=== PATIENT | male | born 1970 | race Two or more races ===

== ENCOUNTER 2020-06-11 08:55 | Emergency (ER) | payer BC ==
[2020-06-11 09:45] LABS: ABSOLUTE BASOPHILS # (AUTO) 0.1 10^3/uL (0.0-0.2); ABSOLUTE EOSINOPHILS # (AUTO) 0.5 10^3/uL (0.0-0.6); ABSOLUTE LYMPHOCYTES (AUTO) 2.1 10^3/uL (0.5-4.7); ABSOLUTE MONOCYTES (AUTO) 0.5 10^3/uL (0.1-1.4); ABSOLUTE NEUT (AUTO) 3.5 10^3/uL (1.7-8.2); BASOPHILS % (AUTO) 1.2 % (0-2); HEMATOCRIT 48.7 % (37.9-51.0); LYMPHOCYTES % (AUTO) 31.8 % (13-45); MEAN CORPUSCULAR HEMOGLOBIN 30.8 pg (27.0-33.4); MEAN CORPUSCULAR HGB CONC 34.9 g/dL (32.0-36.0); MEAN CORPUSCULAR VOLUME 88 fl (80-97); MONOCYTES % (AUTO) 6.9 % (3-13); PLATELET COUNT 212 10^3/uL (150-450); RED BLOOD COUNT 5.52 10^6/uL (4.35-5.55); SEGMENTED NEUTROPHILS % (AUTO) 53.1 % (42-78); TOTAL CELLS COUNTED % (AUTO) 100 %; WHITE BLOOD COUNT 6.7 10^3/uL (4.0-10.5)
--- NOTE | 2020-06-11 09:54 | RADIOLOGY REPORT (SQ) ---
EXAM DESCRIPTION: CHEST SINGLE VIEW IMAGES COMPLETED DATE/TIME: 06/11/2020 9:46 am REASON FOR STUDY: acute chest pain/pressure COMPARISON: None. EXAM PARAMETERS: NUMBER OF VIEWS: One view. TECHNIQUE: Single frontal radiographic view of the chest acquired. RADIATION DOSE: NA LIMITATIONS: None. FINDINGS: LUNGS AND PLEURA: No opacities, masses or pneumothorax. No pleural effusion. MEDIASTINUM AND HILAR STRUCTURES: No masses. Contour normal. HEART AND VASCULAR STRUCTURES: Heart normal in size. Normal vasculature. BONES: No acute findings. HARDWARE: None in the chest. OTHER: No other significant finding. IMPRESSION: NO ACUTE RADIOGRAPHIC FINDING IN THE CHEST. TECHNICAL DOCUMENTATION: JOB ID: [id number] 2010 [employer]- All Rights Reserved Reading location - IP/workstation name: [email or web address]
[2020-06-11 10:02] LABS: ALBUMIN 4.5 g/dL (3.5-5.0); ALKALINE PHOSPHATASE 50 U/L (38-126); ASPARTATE AMINO TRANSFERASE 35 U/L (17-59); BILIRUBIN,TOTAL 1.5 mg/dL (0.2-1.3); BLOOD UREA NITROGEN 22 mg/dL (7-20); CALCIUM 9.8 mg/dL (8.4-10.2); CARBON DIOXIDE 28 mmol/L (22-30); CHLORIDE 107 mmol/L (98-107); GLUCOSE 106 mg/dL (75-110); POTASSIUM 4.8 mmol/L (3.6-5.0); TOTAL PROTEIN 7.9 g/dL (6.3-8.2)
[2020-06-11 10:07] LABS: ANION GAP 5 (5-19)
--- NOTE | 2020-06-11 10:09 | EKG REPORT ---
SEVERITY:- NORMAL ECG - SINUS RHYTHM : Confirmed by: Osito Rojas MD 11-Jun-2020 10:08:44
[2020-06-11] MEDS ORDERED: ASPIRIN 325 MG TABLET PO ONE (10:28)
--- NOTE | 2020-06-11 10:35 | ER Document Report ---
ED General - General Chief Complaint: Chest Pain > 30 Stated Complaint: CHEST TIGHTNESS,LEFT ARM TINGLING Time Seen by Provider: 06/11/20 09:32 Notes: 50-year-old male with a history of early family coronary disease descent and poor follow-up unknown if he has hypertension hyperlipidemia presents with an episode of chest pain left arm tightness diaphoresis and shortness of breath a little over 48 hours ago which woke him from sleep and overnight. It resolved by the time he woke up after about an hour but has had intermittent achy chest pain since then. He is currently painfree. He does not smoke but has risk factors as above. Pain is not pleuritic. There is no fever or Covid type symptoms and has had 3 - Covid test in the last month. - Related Data Allergies/Adverse Reactions: ibuprofen Allergy (Verified 06/11/20 09:16) swelling naproxen [From Aleve] Allergy (Verified 06/11/20 09:16) Past Medical History - General Information source: Patient - Social History Smoking Status: Never Smoker Chew tobacco use (# tins/day): No Frequency of alcohol use: Social Drug Abuse: Marijuana Family History: CAD Patient has homicidal ideation: No Review of Systems - Review of Systems Notes: REVIEW OF SYSTEMS GEN: Diaphoresis ENT: Denies sore throat, nasal discharge, ear pain EYES: Denies blurry vision, eye pain, discharge CV: Chest pain, wheezing GI: Denies abdominal pain, nausea, vomiting, diarrhea MSK: Denies joint pain/swelling, edema, SKIN: Denies rash, skin lesions LYMPH: Denies swollen glands/lymph nodes NEURO: Denies headache, focal weakness or numbness, dizziness PSYCH: Denies depression, suicidal or homicidal ideation PHYSICAL EXAMINATION General: No acute distress, well-nourished Head: Atraumatic, normocephalic ENT: Mouth normal, oropharynx moist, no exudates or tonsillar enlargement Eyes: Conjunctiva normal, pupils equal, lids normal Neck: No JVD, supple, no guarding CVS: Normal rate, regular rhythm, no murmurs Resp: No resp distress, equal and normal breath sounds bilaterally GI: Nondistended, soft, no tenderness to palpation, no rebound or guarding Ext: No deformities, no edema, normal range of motion in upper and lower ext Back: No CVA or midline TTP Skin: No rash, warm Lymphatic: No lymphadeopathy noted Neuro: Awake, alert. Face symmetric. GCS 15. Physical Exam - Vital signs Vitals: Temp Pulse Resp BP Pulse Ox 97.7 F 72 17 127/98 H 96 06/11/20 09:05 06/11/20 09:05 06/11/20 09:05 06/11/20 09:05 06/11/20 09:05 Course - Re-evaluation Re-evalutation: 06/11/20 11:57 Patient presents with chest pain a few days ago with risk factors for coronary disease and a normal EKG here. He is pain-free. His troponin is 0.181 which suggests a recent small myocardial infarction or injury. Symptoms are significant for stuttering angina. He was given Lovenox and aspirin in the ED the remainder of his work-up was negative. I discussed him with Dr. Rojas from cardiology who asked me to transfer the patient because he will need a cath and he does not cath Discussed with Dr. Navarro at [facility] who accepted patient is a "cardiac 1" meaning he would go to the [facility] later today. The first truck available is at 130 and I said that is fine. I do not think the patient needs to be urgently airlifted given that he is pain-free. I repeat his troponin and ECG and if there is no change plan will remain as - Vital Signs Vital signs: Temp Pulse Resp BP Pulse Ox 97.7 F 72 14 140/88 H 100 06/11/20 09:05 06/11/20 09:05 06/11/20 10:38 06/11/20 10:38 06/11/20 10:38 - Laboratory Results Result Diagrams: 06/11/20 09:30 06/11/20 09:30 Laboratory Results Interpreted: 06/11/20 06/11/20 09:30 09:30 Eos % (Auto) 7.0 H BUN 22 H Total Bilirubin 1.5 H Critical Laboratory Results Reviewed: Yes Attending or Supervising Physician who Reviewed Labs: CLARITZA LEBLANC - Radiology Results Critical Radiology Results Reviewed: No Critical Results Critical Care Note - Critical Care Note Total time excluding time spent on procedures (mins): 42 Comments: The above patient is critically ill. Not including procedures, but including direct re-evaluations, speaking with patient and/or consultants, interpreting results, and documenting, I spent the total amount of minute listed listed above on critical care time Discharge - Discharge Clinical Impression: Acute coronary syndrome Condition: Fair Disposition: [facility]
[2020-06-11] MEDS ORDERED: ENOXAPARIN SODIUM INJ 40 MG/0.4 ML DISP.SYRIN SUBCUT SCH ×2 (11:00→22:00)
[2020-06-11 15:16] VITALS: BP 109/74
--- NOTE | 2020-06-11 17:55 | EKG REPORT ---
SEVERITY:- NORMAL ECG - SINUS BRADYCARDIA : Confirmed by: Osito Rojas MD 11-Jun-2020 17:54:26
== END 2020-06-11 14:50 | disposition short-term general hospital (02) ==
LOC: ER 08:55
DX: I24.9 Acute ischemic heart disease, unspecified (principal); R07.9 Chest pain, unspecified; R20.2 Paresthesia of skin; R06.02 Shortness of breath; R61 Generalized hyperhidrosis
CPT/HCPCS: 93005; 99285; 96372; 36415; 85025; 80053; 84484; 71045; 93010; J1650